=== PATIENT | female | born 1990 | race African-American/Black ===

== ENCOUNTER 2017-06-13 20:49 | Emergency (ER) | payer OTHER ==
[~2017-06-13] VITALS: Ht 162.6 cm; Wt 45.4 kg
[2017-06-13 21:31] LABS: HEMATOCRIT 26.6 % (37.0-47.0); HEMOGLOBIN 8.3 gm/dL (12.0-15.0); MCHC 31.1 g/dL (28.0-37.0); MCV 70.7 fL (80.0-100.0); PLATELET COUNT 199 thou/uL (150-400); RBC 3.76 mil/uL (4.20-5.00); RDW 23.1 % (10.5-14.5); WBC 7.2 thou/uL (4.0-11.0)
[2017-06-13 21:32] LABS: MANUAL DIFF YES
[2017-06-13 21:39] LABS: CALCIUM 9.6 mg/dL (8.5-10.1); POTASSIUM 3.7 mmol/L (3.5-5.1)
[2017-06-13 21:53] LABS: ABSOLUTE NEUTROPHILS 4.7 thou/uL (1.4-8.2); TOTAL CELL COUNT 100
[2017-06-13 21:54] LABS: ANISOCYTOSIS 2+; HYPOCHROMASIA 1+; MICROCYTES 1+; POLYCHROMASIA OCCASIONAL; TARGET CELLS FEW
[2017-06-13 21:55] LABS: POIKILOCYTOSIS SLIGHT
[2017-06-14 03:43] LABS: AMP/METHAMP Negative (Negative); BARBITURATES Negative (Negative); BENZODIAZEPINES Negative (Negative); COCAINE Negative (Negative); METHADONE Negative (Negative); OPIATES Negative (Negative); PCP Negative (Negative); THC POSITIVE (Negative)
[2017-06-14 23:44] VITALS: BP 112/70
== END 2017-06-14 22:54 | disposition home or self-care (01) ==
LOC: ER 20:49
PROVIDERS: Emergency Medicine
DX: F28 Other psychotic disorder not due to a substance or known physiological condition (principal)